=== PATIENT | female | born 1935 | race American Indian/Alaskan Native ===

== ENCOUNTER 2019-10-29 02:12 | Emergency (ER) | payer OTHER ==
[2019-10-29 02:21] VITALS: BP 155/65
--- NOTE | 2019-10-29 03:12 | Emergency Department Report ---
ED Fall HPI - General Chief Complaint: Fall Stated Complaint: FELL AND HIT BACK OF HEAD Time Seen by Provider: 10/29/19 02:57 Source: patient Mode of arrival: Wheelchair - History of Present Illness Initial Comments: 84-year-old female presents to the emergency room stating that she was walking from the bathroom and tripped over object in the path and fell backwards. Patient denies any pain at the present but states she had neck pain. Patient has a past medical history of diabetes hypertension high cholesterol and a hysterectomy. MD Complaint: fall -: During the night Fall From: standing When Fall Occurred: [address] Fall Occurred: home - Related Data Allergies Allergy/AdvReac Type Severity Reaction Status Date / Time iodine Allergy Unknown Verified 10/29/19 02:21 metformin Allergy Unknown Verified 10/29/19 02:21 ED Review of Systems ROS: Stated complaint: FELL AND HIT BACK OF HEAD Other details as noted in HPI ED Past Medical Hx - Past Medical History Previous Medical History?: Yes Hx Hypertension: Yes Hx Diabetes: Yes Additional medical history: high cholestrol. glaucoma - Surgical History Past Surgical History?: Yes Additional Surgical History: teeth extraction. hyster - Social History Smoking Status: Never Smoker Substance Use Type: None ED Physical Exam - General Limitations: Other General appearance: alert, in no apparent distress - Head Head exam: Present: atraumatic, normocephalic - Eye Eye exam: Present: normal appearance - ENT ENT exam: Present: mucous membranes moist - Neck Neck exam: Present: normal inspection - Respiratory Respiratory exam: Present: normal lung sounds bilaterally. Absent: respiratory distress - Cardiovascular Cardiovascular Exam: Present: regular rate, normal rhythm. Absent: systolic murmur, diastolic murmur, rubs, gallop - GI/Abdominal GI/Abdominal exam: Present: soft, normal bowel sounds - Neurological Exam Neurological exam: Present: alert, oriented X3, normal gait - Psychiatric Psychiatric exam: Present: normal affect, normal mood - Skin Skin exam: Present: warm, dry, intact, normal color. Absent: rash ED Course Vital Signs 10/29/19 02:17 Temperature 97.5 F L Pulse Rate 83 Respiratory 18 Rate Blood Pressure 155/65 O2 Sat by Pulse 98 Oximetry ED Medical Decision Making - Radiology Data Radiology results: report reviewed Referring Physician:SHANTHI ROBERSONPatient Name:ROSALVA CASTANEDAPatient ID:[id number] of :[id number]:FemaleAccession:[id number] Date:[id number] Status:Finalized Findings [address] [address] Cat Scan Report Signed Patient: ROSALVA CASTANEDA MR#: [id number] 99 : 1935 Acct:[id number] Age/Sex: 84 / F ADM Date: 10/29/19 Loc: ED Attending Dr: Ordering Physician: JOVAN BECERRA Date of Service: 10/29/19 Procedure(s): CT cervical spine wo con Accession Number(s): [id number] cc: JOVAN BECERRA CT CERVICAL SPINE WITHOUT CONTRAST HISTORY: Neck pain status post fall COMPARISON: None TECHNIQUE: CT images of the cervical spine were obtained without contrast. Sagittal and coronal reformats were post-processed. CONTRAST: None. FINDINGS: Alignment: Normal. Vertebrae:No significant abnormality. Disc Spaces: Moderate degenerative changes C1-2. No significant abnormality allowing for lack of intrathecal contrast. Facet Joints:No significant abnormality. Craniocervical Junction:No significant abnormality. Prevertebral Soft Tissues:No significant abnormality. Lung Apices: No significant abnormality. Additional Findings: Moderate vascular calcifications throughout both carotid artery bulbs. IMPRESSION: 1. Moderate degenerative changes C1-2. 2. No cervical fracture. Signer Name: Mark Sotomayor MD Signed: 10/29/2019 3:41 AM Workstation Name: [id number] Transcribed By: TL Dictated By: Mark Sotomayor MD Electronically Authenticated By: Mark Sotomayor MD Signed Date/Time: 10/29/19340 DD/ 0339 TD/TT: Print Report Referring Physician:SHANTHI ROBERSONPatient Name:ROSALVA CASTANEDAPatient ID:[id number] of :[id number]:FemaleAccession:[id number] Date:[id number] Status:Finalized Findings [address] [address] Cat Scan Report Signed Patient: ROSALVA CASTANEDA MR#: [id number] [birth year] : 1935 Acct:[id number] Age/Sex: 84 / F ADM Date: 10/29/19 Loc: ED Attending Dr: Ordering Physician: JOVAN BECERRA Date of Service: 10/29/19 Procedure(s): CT head/brain wo con Accession Number(s): [id number] cc: JOVAN BECERRA CT HEAD WITHOUT CONTRAST INDICATION / CLINICAL INFORMATION: Patient fell backwards hitting her head. TECHNIQUE: All CT scans at this location are performed using CT dose reduction for ALARA by means of automated exposure control. COMPARISON: None available. FINDINGS: HEMORRHAGE: None. EXTRA-AXIAL SPACES: Normal in size and morphology for the patient's age. VENTRICULAR SYSTEM: Normal in size and morphology for the patient's age. CEREBRAL PARENCHYMA: Moderate cerebral atrophy. Extensive periventricular and deep white matter hypoattenuation characteristic for microangiopathy. No significant abnormality. No acute territorial infarct. MIDLINE SHIFT OR HERNIATION: None. CEREBELLUM / BRAINSTEM: No significant abnormality. ORBITS: Normal as visualized. SOFT TISSUES of HEAD: No significant abnormality. CALVARIUM: No significant abnormality. PARANASAL SINUSES / MASTOID AIR CELLS: Normal as visualized. ADDITIONAL FINDINGS: Moderate vascular calcifications both cavernous carotid and vertebral arteries. IMPRESSION: 1. No acute intracranial abnormality. 2. Extensive microangiopathy and moderate cerebral atrophy Signer Name: Mark Sotomayor MD Signed: 10/29/2019 3:38 AM Workstation Name: [id number] - Medical Decision Making 84-year-old female presents to the emergency room stating that she was walking from the bathroom and tripped over object in the path and fell backwards. Patient denies any pain at the present but states she had neck pain. Patient has a past medical history of diabetes hypertension high cholesterol and a hysterectomy. CT of head without contrast CT of neck without contrast. CTs are both negative for any acute abnormalities. Cervical spine shows she has moderate degenerative changes CT of head shows microvascular changes which is all chronic. She can take Tylenol if she has any pain. At this time patient denies any pain examination within normal limits Critical care attestation.: If time is entered above; I have spent that time in minutes in the direct care of this critically ill patient, excluding procedure time. ED Disposition Clinical Impression: Fall, Neck pain Disposition: DC- TO HOME OR SELFCARE Is pt being admited?: No Does the pt Need Aspirin: No Condition: Stable Instructions: Fall Prevention for Older Adults (ED) Additional Instructions: Both CT of neck and head are negative for any acute findings. Follow-up with your primary care provider for any further concerns. Return back to the emergency room if you develop a headache that is the worst. Change in vision nausea vomiting. Forms: Accompanied Note
--- NOTE | 2019-10-29 03:42 | Cat Scan Report ---
CT HEAD WITHOUT CONTRAST INDICATION / CLINICAL INFORMATION: Patient fell backwards hitting her head. TECHNIQUE: All CT scans at this location are performed using CT dose reduction for ALARA by means of automated e xposure control. COMPARISON: None available. FINDINGS: HEMORRHAGE: None. EXTRA-AXIAL SPACES: Normal in size and morphology for the patient's age. VENTRICULAR SYSTEM: Normal in size and morphology for the patient's age. CEREBRAL PARENCHYMA: Moderate cerebral atrophy. Extensive periventricular and deep white matter hypoa ttenuation characteristic for microangiopathy. No significant abnormality. No acute territorial infar ct. MIDLINE SHIFT OR HERNIATION: None. CEREBELLUM / BRAINSTEM: No significant abnormality. ORBITS: Normal as visualized. SOFT TISSUES of HEAD: No significant abnormality. CALVARIUM: No significant abnormality. PARANASAL SINUSES / MASTOID AIR CELLS: Normal as visualized. ADDITIONAL FINDINGS: Moderate vascular calcifications both cavernous carotid and vertebral arteries. IMPRESSION: 1. No acute intracranial abnormality. 2. Extensive microangiopathy and moderate cerebral atrophy Signer Name: Mark Sotomayor MD Signed: 10/29/2019 3:38 AM Workstation Name: [id number]
--- NOTE | 2019-10-29 03:45 | Cat Scan Report ---
CT CERVICAL SPINE WITHOUT CONTRAST HISTORY: Neck pain status post fall COMPARISON: None TECHNIQUE: CT images of the cervical spine were obtained without contrast. Sagittal and coronal refo rmats were post-processed. CONTRAST: None. FINDINGS: Alignment: Normal. Vertebrae:No significant abnormality. Disc Spaces: Moderate degenerative changes C1-2. No significant abnormality allowing for lack of intr athecal contrast. Facet Joints:No significant abnormality. Craniocervical Junction:No significant abnormality. Prevertebral Soft Tissues:No significant abnormality. Lung Apices: No significant abnormality. Additional Findings: Moderate vascular calcifications throughout both carotid artery bulbs. IMPRESSION: 1. Moderate degenerative changes C1-2. 2. No cervical fracture. Signer Name: Mark Sotomayor MD Signed: 10/29/2019 3:41 AM Workstation Name: [id number]
== END 2019-10-29 04:00 | disposition home or self-care (01) ==
LOC: ED 02:12
DX: M54.2 Cervicalgia (principal); I10 Essential (primary) hypertension; E11.9 Type 2 diabetes mellitus without complications; E78.00 Pure hypercholesterolemia, unspecified; Z90.710 Acquired absence of both cervix and uterus; Z88.8 Allergy status to other drugs, medicaments and biological substances; Z91.041 Radiographic dye allergy status; Z98.890 Other specified postprocedural states; W18.30XA Fall on same level, unspecified, initial encounter; Y92.099 Unspecified place in other non-institutional residence as the place of occurrence of the external cause; Y93.89 Activity, other specified; Y99.8 Other external cause status
CPT/HCPCS: 70450; 72125